=== PATIENT | female | born 1985 | race Caucasian/White ===

== ENCOUNTER 2016-07-22 10:35 | Emergency (ER) | payer MEDICAID ==
--- NOTE | ~2016-07-22 | ER ---
PATIENT'S NAME: [facility] AGE: 30 Y [address] ROOM: [place] [id number] LOCATION: [facility] ADMIT DATE: 07/22/2016 ER/Outpatient Report DISCHARGE DATE: 07/22/2016 FAMILY PHYSICIAN: PHYSICIAN, ABDIEL ATTENDING PHYSICIAN: Babatunde Duggan CHIEF COMPLAINT: Concern for infection. HISTORY OF PRESENT ILLNESS: The patient states that on June 15, 2016, she had ORIF of the right humerus by Dr. Melgoza. She has been doing well. However, she thinks she has infected stitches that started last night, and she was feeling a little more confused this morning. She has had the similar reaction to the stitches with prior surgery. She has no fever but states her temperature was elevated for her at 99 degrees, She reportedly did contact Dr. Melgoza' office and spoke with the nurse, who recommended she come in here. She states that she did take her morphine, Percocet, and Xanax this morning, and felt dizzy and unusual, and that was concerning to her. She states that the degree of pain not improving is concerning to her, but that is not the reason she is here today. She denies any other issues including weakness of the hand or other neurologic changes, and states she is feeling much better now than she was earlier. PAST MEDICAL HISTORY: Documented on the record and reviewed by me. SOCIAL HISTORY: Documented on the record and reviewed by me. MEDICATIONS: Documented on the record and reviewed by me. ALLERGIES: DOCUMENTED ON THE RECORD AND REVIEWED BY ME. REVIEW OF SYSTEMS: All systems were reviewed and negative except as noted in the HPI. PHYSICAL EXAMINATION: VITAL SIGNS: Blood pressure 104/66, pulse is 103, respiratory rate is 16, temperature 99.3, SpO2 is 98% on room air. Pain is rated at 2/10. GENERAL: An age appropriate female, sitting upright on the exam table, in no obvious pain or distress. NEUROLOGIC: Awake, alert. GCS 15. No focal deficits. The patient is able to make thumbs up, okay sign, cross fingers, and has strong infrastructure administrator of the right PATIENT'S NAME: [facility] AGE: 30 Y [address] ROOM: [place] [id number] LOCATION: [facility] ADMIT DATE: 07/22/2016 ER/Outpatient Report DISCHARGE DATE: 07/22/2016 FAMILY PHYSICIAN: PHYSICIAN, NO ATTENDING PHYSICIAN: Babatunde Duggan. HEENT: Normocephalic, atraumatic. Eyes are PERRL. Oropharynx is clear. NECK: Supple. Trachea is midline. CHEST: Heart is regular rate and rhythm with no murmurs. LUNGS: Clear to auscultation bilaterally. No rhonchi, wheezes, or rales. ABDOMEN: Normal to inspection. EXTREMITIES: The right upper extremity is in a sling and swath. The hand is intact. The surgical site appears to be clean, dry, and intact. There are 3 suture sites, that are slightly erythematous. Scant purulent material expressed from one of those sites. Two of them do have what appears to be some suture material remaining. There is no significant fluctuance, tenderness, or significant spreading erythema consistent with cellulitis. No obvious infection. The remainder of the exam is unremarkable. SKIN: Grossly intact except as noted above. LABORATORY DATA AND X-RAYS: None. IMPRESSION: Local reaction to surgical site material. EMERGENCY DEPARTMENT COURSE: The patient was evaluated as above. The patient's presentation is not consistent with infection including abscess or cellulitis at this time. There are no physical findings, and vital signs are not consistent with same. Palpated pulse on exam is 85. She states her blood pressure is at her normal for her. She is mentating appropriately, speaking well, and walking without difficulties. I explained to them I have a very low suspicion for infection for her today. However, to be sure, we should get some labs to help confirm that. The patient was hesitant to agree to that, citing financial reasons. I explained that our job here in the emergency department is to exclude emergency. I have a very low suspicion for her, but it is not zero suspicion. Based on our discussion, the patient has elected not to proceed with any further laboratory evaluation today. I am not recommending any antibiotics for her today. I am recommending she follow up with her usual providers as needed including Dr. Melgoza. She also was encouraged to only use one narcotic medication and to minimize use of her other medications as needed. All questions were answered to the best of my ability prior to discharge. She should return immediately if further signs of infection or spreading. BABATUNDE DUGGAN MD PATIENT'S NAME: [facility] AGE: 30 Y [address] ROOM: [place] [id number] LOCATION: [facility] ADMIT DATE: 07/22/2016 ER/Outpatient Report DISCHARGE DATE: 07/22/2016 FAMILY PHYSICIAN: ABDIEL LEIJA ATTENDING PHYSICIAN: Babatunde Duggan/raj /[id number] d: 07/22/[id number] t: 07/24/16 0823, OUTPATIENT REPORT
[~2016-07-22 10:35] MED LIST: DILAUDID 2MG(HYD2 MG PO; MS CONTIN15 MG PO; TYLENOL325 MG PO; VALIUM5 MG PO
== END 2016-07-22 11:38 | disposition disaster alternative care site (69) ==
LOC: GMED 10:35
DX: T81.4XXA Infection following a procedure, initial encounter (principal)